=== PATIENT | female | born 1950 | race Asian ===

== ENCOUNTER 2021-01-07 16:17 | Outpatient (CLI) | payer MEDICARE, OTHER | END 2021-01-07 16:18 | disposition home or self-care (01) | LOC: CSHULT 16:17 | PROVIDERS: ATTEND Family Medicine | DX: L80 Vitiligo (principal); E04.1 Nontoxic single thyroid nodule | CPT/HCPCS: 76536 ==

== ENCOUNTER 2021-01-25 10:59 | Outpatient (CLI) | payer MEDICARE, OTHER ==
[2021-01-26 02:13] LABS: SARS-CoV-2 PCR by NAA Not Detected (NotDetected)
== END 2021-01-25 11:00 | disposition home or self-care (01) ==
LOC: CSHLAB 10:59
PROVIDERS: ATTEND Student in an Organized Health Care Education/Training Program
DX: Z01.812 Encounter for preprocedural laboratory examination (principal); Z20.822 Contact with and (suspected) exposure to COVID-19; E04.1 Nontoxic single thyroid nodule
CPT/HCPCS: 87635; U0003; U0005

== ENCOUNTER 2022-10-17 10:03 | Outpatient (CLI) | payer MEDICARE, OTHER | END 2022-10-17 10:04 | disposition home or self-care (01) | LOC: CSHMAMMO 10:03 | PROVIDERS: ATTEND Family Medicine | DX: Z13.820 Encounter for screening for osteoporosis (principal); Z78.0 Asymptomatic menopausal state; M81.0 Age-related osteoporosis without current pathological fracture; M85.88 Other specified disorders of bone density and structure, other site | CPT/HCPCS: 77080 ==